=== PATIENT | male | born 1935 | race Caucasian/White ===

== ENCOUNTER 2017-11-12 19:46 | Inpatient (IN) | payer MEDICARE, OTHER ==
[~2017-11-12] VITALS: Ht 175.3 cm; Wt 63.2 kg
[2017-11-12] MEDS ORDERED: GELATIN SPONGE 12-7MM ONE ×3 (20:13→20:28)
[2017-11-12] MEDS ORDERED: VENL150C56 PO (20:43)
[2017-11-12] MEDS ORDERED: QUET1TAB32 PO ×2 (20:43)
[2017-11-12] MEDS ORDERED: POLY335019 PO (20:43)
[2017-11-12] MEDS ORDERED: SENN-61 PO (20:43)
[2017-11-12] MEDS ORDERED: LIDOCAINE/EPINEPH/TETRACAINE 1 EA SYR ONE (20:43)
[2017-11-12] MEDS ORDERED: SELE1SHA3 TOP (20:43)
[2017-11-12] MEDS ORDERED: XYLOCAINE 1%/SOD BICARB 20 ML VIAL INFIL ONE (21:00)
--- NOTE | 2017-11-12 21:17 | DIAGNOSTIC IMAGING REPORT ---
HEAD WITHOUT CONTRAST (CT) CLINICAL HISTORY: 82 years-old Male presenting with eval for bleed, fall. TECHNIQUE: Multidetector CT imaging of the head was performed without the use of intravenous contrast. IV contrast: None. A dose lowering technique was used consistent with the principles of ALARA (as low as reasonably achievable). COMPARISON: None. CT DOSE (mGy.cm): The estimated cumulative dose is 957.48 mGy.cm. FINDINGS: Preschool Teacher Aide topogram: Unremarkable. Proportional ventricular and sulcal prominence, likely age-related parenchymal volume loss. Periventricular and subcortical white matter hypoattenuation, nonspecific but likely indicative of chronic small vessel ischemic change. No mass effect or midline shift. No hemorrhage or acute territorial infarct. No extra-axial fluid collection. Paranasal sinuses and mastoid air cells clear. Calvarium intact. IMPRESSION: 1. Chronic small vessel ischemic change. No acute intracranial abnormality. Electronically signed by: Tu Esparza M.D. 11/12/2017 9:16 PM Dictated Date/Time: 11/12/2017 9:14 PM
--- NOTE | 2017-11-12 21:19 | DIAGNOSTIC IMAGING REPORT ---
CERVICAL SPINE W/O CLINICAL HISTORY: 82 years-old Male presenting with eval for fx, fall. TECHNIQUE: Multidetector CT of the cervical spine was performed without the use of intravenous contrast. IV contrast: None. A dose lowering technique was used consistent with the principles of ALARA (as low as reasonably achievable). COMPARISON: None. CT DOSE (mGy.cm): The estimated cumulative dose is 957.48. FINDINGS: Principal Clerk topogram: Unremarkable. Normal cervical lordosis. Vertebral bodies maintain normal height and alignment. The vertebral disc height loss noted in the lower cervical spine. Disc osteophyte complexes at nearly every level. No acute fracture or subluxation. Atherosclerosis. Apices clear. IMPRESSION: 1. No acute osseous injury of the cervical spine. 2. Multilevel degenerative change. Electronically signed by: Tu Esparza M.D. 11/12/2017 9:18 PM Dictated Date/Time: 11/12/2017 9:16 PM
--- NOTE | 2017-11-12 22:45 | EMERGENCY ROOM VISIT NOTE ---
ED Visit Note I was asked by Dr. Pulliam to repair a laceration on the patient's ear. I reviewed all documentation and evaluated the laceration independently. Please see Dr. Pulliam's dictation regarding further management and care. PE: SKIN: 3cm laceration noted to the posterior auricular sulcus, extending around the inferior/anterior aspect of the lobule, following the sulcus. There is a small, 0.5cm extension of the laceration extending in a transverse plane from the initial laceration at approximately the mid-point of the initial laceration. This is minimally bleeding. There are no obvious deep structures noted. The wound is clean and no foreign bodies noted. Verbal consent was obtained to perform the procedure. Using sterile technique the wound was cleaned with Betadine. The area was sterilely draped. 3 ml of 1 % buffered lidocaine was used to anesthetize the laceration on the area of the scalp which meets the ear and the earlobe. Once the patient was anesthetized, the wound was copiously irrigated under pressure with sterile saline. The wound was explored and there were no deep structures injured such as tendons, bone, or significant blood vessels. The laceration was repaired using 14 simple interrupted 6-0 nylon sutures with the wound edges being well approximated. The patient tolerated the procedure well. Hemostasis was achieved. The area was cleaned with sterile saline and dressed with bacitracin ointment and bandage.
--- NOTE | 2017-11-12 23:00 | EMERGENCY ROOM VISIT NOTE ---
History First contact with patient: 19:57 Chief Complaint: FALL Stated Complaint: FALL, LACERATION TO HEAD & BEHIND EAR History of Present Illness The patient is a 82 year old male who presents to the Emergency Room with complaints of unwitnessed fall - from [facility] - found by his caretakers at around 6:30 this evening, found lying on the floor on his left side next to his night stand with drops of blood around his head. Per caretakers, he was awake and alert, they assisted him to a chair and began to apply pressure to the back of his left ear to try and stop the bleeding, however this was difficult due to his combativeness. Here in ED pt's son and POA is present. Review of Systems ROS limited due to pt's demented status Past Medical/Surgical History Medical Problems: (1) Dementia Social History Smoking Status: Never Smoker Housing Status: detention Current/Historical Medications Scheduled Polyethylene Glycol 3350 (Miralax), 17 GM PO DAILY Quetiapine Fumarate (Seroquel), 75 MG PO HS Quetiapine Fumarate (Seroquel), 50 MG PO DAILY Selenium Sulfide (Selsun Blue), 1 APPLN TOP 2XWK Senna (Senokot), 2 TAB PO BID Venlafaxine Hcl (Effexor Extended Rel), 150 MG PO DAILY Physical Exam Vital Signs Date Time Temp Pulse Resp B/P (MAP) Pulse Ox O2 Delivery O2 Flow Rate FiO2 11/12/17 21:00 65 20 129/69 94 Room Air 11/12/17 20:55 65 11/12/17 19:54 36.7 73 20 110/72 95 Room Air Physical Exam GENERAL: Awake, demented, somewhat combative when applying pressure to lac. HENT: Normocephalic, atraumatic. Oropharynx unremarkable. Poor dentition. EYES: Normal conjunctiva. Sclera non-icteric. NECK: Supple. Hematoma over left sternocleidomastoid muscle area, 7 cm linear laceration at posterior left ear. ABDOMEN: Soft, non-distended. No tenderness to palpation. No rebound or guarding. No masses. RECTAL: Deferred. MUSCULOSKELETAL: Chest examination reveals no tenderness. No joint edema. LOWER EXTREMITIES: Calves are equal size bilaterally and non-tender. No edema. No discoloration. Medical Decision & Procedures Laboratory Results Test 11/12/17 20:49 Medications Administered Medications (Trade) Dose Ordered Sig/Ata Route Start Time Stop Time Status Last Admin Dose Admin Tetracaine/ Epinephrine/ Lidocaine (L.e.t. Gel 4%/ 1:100/0.5%) 1 ea STK-MED ONCE .ROUTE 11/12/17 20:43 11/12/17 20:44 DC 11/12/17 20:43 1 EA Procedure HEAD WITHOUT CONTRAST (CT) CLINICAL HISTORY: 82 years-old Male presenting with eval for bleed, fall. TECHNIQUE: Multidetector CT imaging of the head was performed without the use of intravenous contrast. IV contrast: None. A dose lowering technique was used consistent with the principles of ALARA (as low as reasonably achievable). COMPARISON: None. CT DOSE (mGy.cm): The estimated cumulative dose is 957.48 mGy.cm. FINDINGS: Demo Event Specialist topogram: Unremarkable. Proportional ventricular and sulcal prominence, likely age-related parenchymal volume loss. Periventricular and subcortical white matter hypoattenuation, nonspecific but likely indicative of chronic small vessel ischemic change. No mass effect or midline shift. No hemorrhage or acute territorial infarct. No extra-axial fluid collection. Paranasal sinuses and mastoid air cells clear. Calvarium intact. IMPRESSION: 1. Chronic small vessel ischemic change. No acute intracranial abnormality. Electronically signed by: Tu Esparza M.D. 11/12/2017 9:[address]: CERVICAL SPINE W/O CLINICAL HISTORY: 82 years-old Male presenting with eval for fx, fall. TECHNIQUE: Multidetector CT of the cervical spine was performed without the use of intravenous contrast. IV contrast: None. A dose lowering technique was used consistent with the principles of ALARA (as low as reasonably achievable). COMPARISON: None. CT DOSE (mGy.cm): The estimated cumulative dose is 957.48. FINDINGS: Demo Event Specialist topogram: Unremarkable. Normal cervical lordosis. Vertebral bodies maintain normal height and alignment. The vertebral disc height loss noted in the lower cervical spine. Disc osteophyte complexes at nearly every level. No acute fracture or subluxation. Atherosclerosis. Apices clear. IMPRESSION: 1. No acute osseous injury of the cervical spine. 2. Multilevel degenerative change. Electronically signed by: Tu Esparza M.D. 11/12/2017 9:18 PM Medical Decision The patient is a 82 year old male who presents to the Emergency Room with complaints of unwitnessed fall - from [facility] - found by his caretakers at around 6:30 this evening, found lying on the floor on his left side next to his night stand with drops of blood around his head. Per caretakers, he was awake and alert, they assisted him to a chair and began to apply pressure to the back of his left ear to try and stop the bleeding, however this was difficult due to his combativeness. Here in ED pt's son and POA is present. Ddx: syncope, epidural hematoma, subdural hematoma, mechanical fall Pt full phys exam revealed no concerns for additional injuries. Laceration repaired with local anesthesia see PA's note. POA decided to forego blood work given comfort status. Case mgmt discussed with family about going back to previous facility or being admitted. Family decides to keep him here, with plan to find SNF placement tomorrow. Pt ready for discharge. Head Trauma GCS Score: 15 Blood Pressure Screening Patient's blood pressure: Normal blood pressure Impression Primary Impression: Fall Departure Information Referrals Padmaja Dong C.R.N.P. (PCP) Patient Instructions My [facility] Resident Tracking Resident Involvement: Resident Care Provided Care Provided: Adult ED
[2017-11-13] MEDS ORDERED: POLYETHYLENE (MIRALAX) 17 GM PACK PO PRN
[2017-11-13] MEDS ORDERED: MAGNESIUM HYDROXIDE SUSP 30 ML UDC PO PRN
[2017-11-13] MEDS ORDERED: ACETAMINOPHEN 325 MG TAB PO PRN
[2017-11-13] MEDS ORDERED: ALUMINUM/MAGNESIUM/SIMETH (MAALOX MAX) 30 ML UDC PO PRN
--- NOTE | 2017-11-13 00:15 | EMERGENCY ROOM VISIT NOTE ---
History Report prepared by Ariella: Greta Cronin Under the Supervision of: Dr. Jose Pulliam M.D. First contact with patient: 19:57 Chief Complaint: FALL Stated Complaint: FALL, LACERATION TO HEAD & BEHIND EAR History of Present Illness The patient is a 82 year old male who presents to the Emergency Room with complaints of an episode of a fall occurring around 7 pm. The patient's son is POA and is in room. Per son, [facility] called him around 7 pm to inform him of the patient's fall. Per son, the patient had an unwitnessed fall and was found in his room on the ground. Per son, the patient got a laceration behind his left ear from the fall. The staff at [facility] was unable to get control of the bleeding. Per son, the patient appears at his baseline. The patient takes Aspirin daily. The patient is comfort care only however, the patient's son would like to do some testing and lab work on the patient. The patient has a history of dementia. His son believes his immunizations are up-to -date. Conversation with [facility] staff: the patient was found on the ground next to his night stand. Source of History: family History Limited By: dementia Onset: around 7 pm Position: other (generalized) Quality: other (fall) Timing: other (episode) Modifying Factors (Relieving): other (none) Associated Symptoms: No fevers Review of Systems ROS limited due to dementia. Past Medical & Surgical Medical Problems: (1) Dementia Family History Patient reports no known family medical history. Social History Smoking Status: Never Smoker Housing Status: fpc Occupation Status: retired Current/Historical Medications Scheduled Polyethylene Glycol 3350 (Miralax), 17 GM PO DAILY Quetiapine Fumarate (Seroquel), 75 MG PO HS Quetiapine Fumarate (Seroquel), 50 MG PO DAILY Selenium Sulfide (Selsun Blue), 1 APPLN TOP 2XWK Senna (Senokot), 2 TAB PO BID Venlafaxine Hcl (Effexor Extended Rel), 150 MG PO DAILY Allergies Coded Allergies: Risperidone (Verified Allergy, Unknown, UNKNOWN, 11/12/17) Physical Exam Vital Signs Date Time Temp Pulse Resp B/P (MAP) Pulse Ox O2 Delivery O2 Flow Rate FiO2 11/12/17 23:00 66 18 129/74 96 Room Air 11/12/17 21:00 65 20 129/69 94 Room Air 11/12/17 20:55 65 11/12/17 19:54 36.7 73 20 110/72 95 Room Air Physical Exam Constitutional: Vital signs reviewed. Exam limited secondary to dementia. Eyes: Pupils are equal round reactive to light. Conjunctiva are noninjected. ENT: Pharynx is clear without erythema or exudate. Mucous membranes are moist. Neck supple without meningeal signs. 3 cm laceration to the posterior auricular sulcus, 0.5 cm extended laceration into the transverse plane with ecchymosis and tenderness to the anterior neck. Respiratory: Clear to auscultation bilaterally. Breath sounds are equal bilaterally. Cardiovascular: Regular rate and rhythm. No rubs or gallops. GI: Soft, nondistended and nontender. Bowel sounds are present. Musculoskeletal: No midline tenderness to cervical spine. Minor bruise to left upper extremity, no tenderness to hips, full ROM of hip bilaterally. Integumentary: No cyanosis. Neurological: The patient is awake and alert. No focal deficits. Psychiatric: Unable to assess affect. Medical Decision & Procedures ER Provider Diagnostic Interpretation: Radiology results as stated below per my review and the radiologist's interpretation: CERVICAL SPINE W/O FINDINGS: Retail Sales Associate Bilingual topogram: Unremarkable. Normal cervical lordosis. Vertebral bodies maintain normal height and alignment. The vertebral disc height loss noted in the lower cervical spine. Disc osteophyte complexes at nearly every level. No acute fracture or subluxation. Atherosclerosis. Apices clear. IMPRESSION: 1. No acute osseous injury of the cervical spine. 2. Multilevel degenerative change. Electronically signed by: Tu Esparza M.D. HEAD WITHOUT CONTRAST (CT) FINDINGS: Retail Sales Associate Bilingual topogram: Unremarkable. Proportional ventricular and sulcal prominence, likely age-related parenchymal volume loss. Periventricular and subcortical white matter hypoattenuation, nonspecific but likely indicative of chronic small vessel ischemic change. No mass effect or midline shift. No hemorrhage or acute territorial infarct. No extra-axial fluid collection. Paranasal sinuses and mastoid air cells clear. Calvarium intact. IMPRESSION: 1. Chronic small vessel ischemic change. No acute intracranial abnormality. Electronically signed by: Tu Esparza M.D. Laboratory Results Test 11/12/17 20:49 Laboratory results as reviewed by me. Medications Administered Medications (Trade) Dose Ordered Sig/Ata Route Start Time Stop Time Status Last Admin Dose Admin Gelatin (Surgifoam Sponge 12-7MM (SMALL)) 1 ea STK-MED ONCE .ROUTE 11/12/17 20:13 11/12/17 20:14 DC 11/12/17 20:13 1 EA Gelatin (Surgifoam Sponge 12-7MM (SMALL)) 1 ea STK-MED ONCE .ROUTE 11/12/17 20:28 11/12/17 20:29 DC 11/12/17 20:28 1 EA Tetracaine/ Epinephrine/ Lidocaine (L.e.t. Gel 4%/ 1:100/0.5%) 1 ea STK-MED ONCE .ROUTE 11/12/17 20:43 11/12/17 20:44 DC 11/12/17 20:43 1 EA ECG Indication: other (fall) Rate (beats per minute): 67 Rhythm: sinus rhythm Findings: no ectopy, other (significant baseline artifact limiting interpretation, no ST elevation ) Change: EKG interpreted by me. ED Course 2013: Ordered Gelatin 1 ea .ROUTE. 2019: Ordered Gelatin 1 ea .ROUTE. 2027 Ordered Gelatin 1 ea .ROUTE. 2037: The patient was evaluated in room B7. A complete history and physical exam was performed. 2042: Ordered Tetracaine/Epinephrine/Lidocaine 1 ea .ROUTE. 2099: Ordered Lidocaine HCl 20 ml INFIL. 2132: I updated the patient's son on his test results. He declined blood work and now is declining carotid Doppler and angio. He would like to talk about possible admission overnight. 2149: See Judy Hough PA-C'adan lopes for laceration repair. 2252: I spoke with Dr. Harper of [facility] hospitalist service. We discussed the patient and his results. The patient will be further evaluated by him. 0: I spoke to Dr. Garzon-[facility] about the patients case. Medical Decision This is an 82-year-old male who was found on the ground at his residence. Differential diagnosis includes acute head injury, intracranial hemorrhage, concussion, syncope, dysrhythmia, carotid dissection, metabolic derangement, cardiac. I did perform a limited focused review of portions of the patient's old chart on the electronic medical record. The patient has had no recent pertinent visits to this hospital. I did evaluate the patient as noted above. I did obtain history from the patient's son who is his power of energy attorney. Initially the family member did wish to have a workup here. I did order and personally review the patient's 12- lead EKG as described above. I did order a CT of the head and cervical spine. I did review the images myself as well as the radiology report as described above. I did order the patient's blood work but the patient's son later decided he did not wish to have any blood work done. He also did not want any workup for possible carotid dissection despite the trauma to the area. He does understand the risks and consequences. The patient is only comfort care and so he did not want any more tests none. His laceration was repaired by Judy Hough PA-C. Please see her note for further details. His son did not feel the patient could be discharged back to [facility] because of his frequent falls and requested that he be kept here. I did have the case maker talk to the patient's son. I did discuss case with the hospitalist service. Resident Physician Supervision Note: I did evaluate and examine this patient myself. I did guide management for the patient. I agree with the resident's (Dr. Bailey) assessment as discussed. Please see the resident's dictation for further details. Head Trauma GCS Score: 15 Medication Reconcilliation Current Medication List: was personally reviewed by me Blood Pressure Screening Patient's blood pressure: Normal blood pressure Consults Time Called: 2249 Consulting Physician: Dr. James Returned Call: [phone] Harper of [facility] hospitalist service. We discussed the patient and his results. The patient will be further evaluated by him. Additional Consults: Time Called: [phone] Consulted Physician: Dr. Tristan Returned Call: [phone] Additional Comments: I spoke to Dr. Tristan about the patients case. Impression Primary Impression: Acute head injury Additional Impressions: Fall Ambulatory dysfunction Laceration of ear Scribe Attestation The scribe's documentation has been prepared under my direct and personally reviewed by me in its entirety. I confirm that the note above accurately reflects all work, treatment, procedures, and medical decision making performed by me. Departure Information Dispostion Being Evaluated By Hospitalist Referrals Padmaja Dong C.R.N.P. (PCP) Patient Instructions My [facility] Problem Qualifiers Primary Impression: Acute head injury Encounter type: initial encounter Qualified Codes: S09.90XA - Unspecified injury of head, initial encounter Additional Impressions: Fall Encounter type: initial encounter Qualified Codes: W19.XXXA - Unspecified fall, initial encounter Laceration of ear Encounter type: initial encounter Laterality: left Qualified Codes: S01.312A - Laceration without foreign body of left ear, initial encounter
--- NOTE | 2017-11-13 00:20 | History and Physical ---
History & Physical Date & Time of Service: Nov 12, 2017 at 23:52 Chief Complaint: Fall, Laceration To Head & Behind Ear Primary Care Physician: Padmaja Dong C.R.N.P. History of Present Illness Source: patient Patient is an 82 year old male with a history of dementia that presents s/p fall this morning with altered mental status. The patient was found on the floor this morning at [facility] after an unwitnessed fall with blood over his head. The patient was very combative and altered when he was found on the ground. The patient was brought to the emergency department and was found to have a 7cm laceration posterior to his left ear in addition to a large hematoma over his carotid neck region. CT head and neck were performed and no acute fractures or abnormalities were found. The patients son is the POA and stated the patient is DNR and would not like any further workup at this time despite already having received imaging. The son would like the father to be placed for senior living although no placement was able to arranged this evening. Past Medical/Surgical History Medical Problems: (1) Dementia Status: Chronic Family History Patient reports no known family medical history. Social History Smoking Status: Never Smoker Allergies Coded Allergies: Risperidone (Verified Allergy, Unknown, UNKNOWN, 11/12/17) Home Medications Scheduled Polyethylene Glycol 3350 (Miralax), 17 GM PO DAILY Quetiapine Fumarate (Seroquel), 75 MG PO HS Quetiapine Fumarate (Seroquel), 50 MG PO DAILY Selenium Sulfide (Selsun Blue), 1 APPLN TOP 2XWK Senna (Senokot), 2 TAB PO BID Venlafaxine Hcl (Effexor Extended Rel), 150 MG PO DAILY Review of Systems Unable to obtain review of systems from the patient due to altered state Physical Exam Vital Signs Date Time Temp Pulse Resp B/P (MAP) Pulse Ox O2 Delivery O2 Flow Rate FiO2 11/12/17 23:00 66 18 129/74 96 Room Air 11/12/17 21:00 65 20 129/69 94 Room Air 11/12/17 20:55 65 11/12/17 19:54 36.7 73 20 110/72 95 Room Air General Appearance: WD/WN, no apparent distress Head: + pertinent finding (Bandage around head C/D/I) Eyes: normal inspection, sclerae normal Neck: supple, trachea midline, + pertinent finding (Hematoma over left carotid region) Respiratory/Chest: chest non-tender, lungs clear, normal breath sounds Cardiovascular: regular rate, rhythm, no edema, no gallop Abdomen/GI: normal bowel sounds, non tender, soft Neurologic/Psych: + disoriented, + pertinent finding (Incomprehensible speech) Diagnostics Laboratory Results Results Past 24 Hours Test 11/12/17 20:49 Range/Units Impression Assessment and Plan Resident Physician Supervision Note: Patient is an 82 year old male with a history of dementia that presents with AMS s/p fall 1) Acute encephalopathy s/p fall - CT head shows no acute intracranial abnormalities - CT cervical spine shows no abnormalities - Son (POA) of patient stated no further workup to assess etiology of the confusion - Plan to arrange referral to senior living --> Referral sent to [facility] - Several sutures placed along laceration posterior to left ear --> Will require follow up for suture removal - Observation Med/Surg 2) Dementia/ Depression - Continue home Seroquel and Effexor 3) DVT - Contraindicated due to acute fall - SCDs 4) Code Status - DNR I was present with Dr. Garzon during the history and exam. I discussed the case with the resident and agree with the findings and plan as documented in the note. Any exceptions or clarifications are listed here: 82 y/o m with advanced dementia who presents from assisted living following a fall. He is brought to the hospital with the intent of transfer to a nursing facility. He is not acutely ill on admission. OE AAO x 1 S1,2 R CTA - poor effort NT, ND No motor deficits appreciated P: Assigned to observation PT/OT eval - effect placement as possible Cont Seroquel and Venlafaxine Documented By: Remberto Harper Level of Care Med/Surg Advanced Directives Existing Power of Automotive Dismantler: Yes Resuscitation Status DO NOT RESUSCITATE VTE Prophylaxis VTE Risk Assessment Done? Y/N: Yes Risk Level: Moderate Resident Tracking Resident Involvement: Resident Care Provided Care Provided: Adult Hospital Medicine
[2017-11-13] MEDS ORDERED: IV FLUIDS COMPLETED PRN (02:15)
[2017-11-13 03:23] VITALS: BP 153/70; PULSE 73; TEMP 36.5; O2SAT 100; Ht 175.3 cm; Wt 63.2 kg
[2017-11-13 07:12] VITALS: BP 155/73; PULSE 68; TEMP 36.6; O2SAT 98
[2017-11-13] MEDS ORDERED: PNEUMOCOCCAL POLYSACCHARIDES 25 MCG/0.5 ML VIAL/SYR IM. ONE (09:00)
[2017-11-13] MEDS ORDERED: PNEUMOCOCCAL ADMINISTRATION CHARGE ONE (09:00)
[2017-11-13] MEDS ORDERED: QUETIAPINE FUMARATE 25 MG TAB PO SCH (09:00)
[2017-11-13] MEDS: VENLAFAXINE HCL XR 150 MG CAPXR PO SCH (09:32)
[2017-11-13] MEDS: SENNA 8.6 MG TAB PO SCH ×2 (09:33→22:03)
--- NOTE | 2017-11-13 09:33 | Family Medicine Progress Note ---
Progress Note Date of Service Nov 13, 2017. Subjective not very verbal Confused Does not answer questions appropriately Additional Comments: Denies pain otherwise ROS difficult to obtain Objective Physical Exam General Appearance: no apparent distress, + pertinent finding (bandage over forehead) Eyes: PERRL, EOMI Respiratory/Chest: lungs clear, no respiratory distress, no accessory muscle use Cardiovascular: regular rate, rhythm, no edema, + pertinent finding (left neck hematoma) Abdomen: normal bowel sounds, non tender, soft Extremities: non-tender, no pedal edema Neurologic/Psychiatric: + disoriented Assessment and Plan Patient is an 82 year old male with a history of dementia that presents with AMS s/p fall 1) Acute encephalopathy s/p fall - CT head shows no acute intracranial abnormalities - CT cervical spine shows no abnormalities - Son (POA) of patient stated no further workup to assess etiology of the confusion - Referral to skilled nursing- pending - sutures placed along laceration posterior to left ear --> needs follow up for suture removal No blood work or further eval pain control and anxiety management (lorazepam 0.25 hs prn available) 2) Dementia/ Depression Documented By: Pawel Means - Continue home Seroquel and Effexor 3) DVT proph - Contraindicated due to acute fall - SCDs 4) Code Status - DNR 5) Dispo pending SNF referral Resident Physician Supervision Note: I was present with Dr. Orellana during the history and exam. I discussed the case with the resident and agree with the findings and plan as documented in the note.
[2017-11-13 15:18] VITALS: BP 134/74; PULSE 62; TEMP 36.5; O2SAT 97
[2017-11-13] MEDS: QUETIAPINE FUMARATE 25 MG TAB PO SCH ×2 (16:00→22:02)
[2017-11-13] MEDS ORDERED: LORAZEPAM INJ 0.25 MG in SYRINGE 0.25 ML IV PRN (19:30)
[2017-11-13] MEDS ORDERED: LORAZEPAM INJ 0.5 MG in SYRINGE 0.75 ML IV PRN (19:45)
[2017-11-13 23:50] VITALS: BP 137/63; PULSE 73; TEMP 36.4; O2SAT 94
[2017-11-14 00:15] VITALS: O2SAT 94
[2017-11-14 07:10] VITALS: BP 131/71; PULSE 76; TEMP 36.4; O2SAT 97
[2017-11-14] MEDS: VENLAFAXINE HCL XR 150 MG CAPXR PO SCH (08:13)
[2017-11-14] MEDS: SENNA 8.6 MG TAB PO SCH ×2 (08:14→20:06)
--- NOTE | 2017-11-14 09:23 | Family Medicine Progress Note ---
Progress Note Date of Service Nov 14, 2017. Subjective Not very verbal Denies pain Additional Comments: unobtainable due to patient not very communicative Medications Medications Administered Medications (Trade) Dose Ordered Sig/Ata Route Start Time Stop Time Status Last Admin Dose Admin Gelatin (Surgifoam Sponge 12-7MM (SMALL)) 1 ea STK-MED ONCE .ROUTE 11/12/17 20:13 11/12/17 20:14 DC 11/12/17 20:13 1 EA Gelatin (Surgifoam Sponge 12-7MM (SMALL)) 1 ea STK-MED ONCE .ROUTE 11/12/17 20:28 11/12/17 20:29 DC 11/12/17 20:28 1 EA Tetracaine/ Epinephrine/ Lidocaine (L.e.t. Gel 4%/ 1:100/0.5%) 1 ea STK-MED ONCE .ROUTE 11/12/17 20:43 11/12/17 20:44 DC 11/12/17 20:43 1 EA Quetiapine Fumarate (seroQUEL TAB) 75 mg HS PO 11/13/17 21:00 12/13/17 20:59 11/13/17 22:02 75 MG Senna (Senokot Tab) 17.2 mg BID PO 11/13/17 09:00 12/13/17 08:59 11/14/17 08:14 17.2 MG Venlafaxine HCl (effeXOR EXTENDED REL CAP) 150 mg DAILY PO 11/13/17 09:00 12/13/17 08:59 11/14/17 08:13 150 MG Quetiapine Fumarate (seroQUEL TAB) 50 mg DAILY@1500 PO 11/13/17 15:00 12/13/17 14:59 11/13/17 16:00 50 MG Objective Vital Signs Vital Signs Past 12 Hours Date Time Temp Pulse Resp B/P (MAP) Pulse Ox O2 Delivery O2 Flow Rate FiO2 11/14/17 07:10 36.4 76 20 131/71 (91) 97 Room Air 11/14/17 00:15 94 Room Air 11/13/17 23:50 36.4 73 18 137/63 (87) 94 Room Air Physical Exam General Appearance: no apparent distress Eyes: PERRL Neck: supple, + pertinent finding (Hematoma over left neck- slightly improved from yesterday) Respiratory/Chest: normal breath sounds, no respiratory distress, no accessory muscle use Cardiovascular: regular rate, rhythm, no murmur Abdomen: normal bowel sounds, non tender, soft Extremities: normal inspection, no pedal edema Neurologic/Psychiatric: + disoriented Assessment and Plan Patient is an 82 year old male with a history of dementia that presents with AMS s/p fall 1) Acute encephalopathy s/p fall - CT head shows no acute intracranial abnormalities - CT cervical spine shows no abnormalities - No further workup/blood work per family- would like to keep him comfortable - Referral to group home- pending - sutures placed along laceration posterior to left ear --> needs follow up for suture removal pain control and anxiety management (lorazepam 0.25 hs prn available) 2) Dementia/ Depression - Continue home Seroquel and Effexor 3) DVT proph - Contraindicated due to acute fall - SCDs 4) Code Status - DNR 5) Dispo pending SNF referral Resident Physician Supervision Note: I interviewed and examined the patient. Discussed with Dr. Orellana and agree with findings and plan as documented in the note. Patient's family members bedside; patient was apparently somewhat agitated before but is now calm. He is awake but disoriented to time date and place. PLAN 1) awaiting placement. Documented By: Pawel Means
[2017-11-14 14:57] VITALS: BP 129/67; PULSE 70; TEMP 36.7; O2SAT 96
[2017-11-14] MEDS: QUETIAPINE FUMARATE 25 MG TAB PO SCH ×2 (15:42→20:06)
[2017-11-14 22:52] VITALS: BP 113/65; PULSE 67; TEMP 36.6; O2SAT 97
[2017-11-15 07:16] VITALS: BP 109/66; PULSE 63; TEMP 36.8; O2SAT 90
[2017-11-15] MEDS: SENNA 8.6 MG TAB PO SCH ×2 (08:54→21:09)
[2017-11-15] MEDS: VENLAFAXINE HCL XR 150 MG CAPXR PO SCH (08:54)
--- NOTE | 2017-11-15 09:27 | Family Medicine Progress Note ---
Progress Note Date of Service Nov 15, 2017. Subjective Pt evaluation today including: conversation w/ patient, physical exam, chart review, lab review, conversation w/ real estate consultant, review of inpatient medication list Pain: none PO Intake: good Voiding: no voiding problems Patient is difficult to understand and does not answer questions appropriately Denies any pain Additional Comments: unable to obtain due to dementia Medications Current Inpatient Medications Medications (Trade) Dose Ordered Sig/Ata Route Start Time Stop Time Status Last Admin Dose Admin Acetaminophen (Tylenol Tab) 650 mg Q4H PRN PO 11/13/17 00:00 12/13/17 00:00 Al Hydrox/Mg Hydrox/Simethicone (Maalox Max Susp) 15 ml Q4H PRN PO 11/13/17 00:00 12/13/17 00:00 Magnesium Hydroxide (Milk Of Magnesia Susp) 30 ml Q6H PRN PO 11/13/17 00:00 12/13/17 00:00 Polyethylene (Miralax Powder Packet) 17 gm DAILY PRN PO 11/13/17 00:00 12/13/17 00:00 Quetiapine Fumarate (seroQUEL TAB) 75 mg HS PO 11/13/17 21:00 12/13/17 20:59 11/14/17 20:06 75 MG Senna (Senokot Tab) 17.2 mg BID PO 11/13/17 09:00 12/13/17 08:59 11/15/17 08:54 17.2 MG Venlafaxine HCl (effeXOR EXTENDED REL CAP) 150 mg DAILY PO 11/13/17 09:00 12/13/17 08:59 11/15/17 08:54 150 MG Miscellaneous (Iv Fluids Completed) 1 ea PRN PRN N/A 11/13/17 02:15 11/13/18 02:14 Quetiapine Fumarate (seroQUEL TAB) 50 mg DAILY@1500 PO 11/13/17 15:00 12/13/17 14:59 11/14/17 15:42 50 MG Lorazepam 0.5 mg/ Syringe 1 ml @ 1 mls/min HS PRN IV 11/13/17 19:45 12/13/17 19:44 Objective Vital Signs General Appearance: no apparent distress Eyes: PERRL Neck: supple, + pertinent finding (bruise over L neck) Respiratory/Chest: normal breath sounds, no respiratory distress, no accessory muscle use Cardiovascular: regular rate, rhythm, no murmur Abdomen: normal bowel sounds, non tender, soft Extremities: normal inspection, no pedal edema Neurologic/Psychiatric: + disorientated to person place and time Assessment and Plan Patient is an 82 year old male with a history of dementia that presents with AMS s/p fall Acute encephalopathy s/p fall - CT head shows no acute intracranial abnormalities - CT cervical spine shows no abnormalities - No further workup/blood work per family- would like to keep him comfortable - sutures placed along laceration posterior to left ear --> needs follow up for suture removal - pain control and anxiety management (lorazepam 0.25 hs prn available) Dementia/ Depression - Continue home Seroquel and Effexor DVT proph - Contraindicated due to acute fall - SCDs Code Status - DNR Dispo - pending placement to [facility] Continued [facility] stay due to: home environment unsafe for pt Discharge planning: [facility] Reviewed: Pt Seen/Exam by Me History no concerns. comfortable in bed not able to hold any conversation Constitutional: denies: fever General Appearance: no apparent distress Respiratory: lungs clear, no respiratory distress Cardiovascular: regular rate, rhythm Neurologic/Psychiatric: alert Skin Characteristics: warm/dry Assessment/Plan Resident Physician Supervision Note: I independently interviewed and examined the patient and verified the rosenberg history and physical, reviewed labs and image studies, discussed the case with the resident Dr. Ma and agree with the findings and care plan.
[2017-11-15] MEDS: QUETIAPINE FUMARATE 25 MG TAB PO SCH ×2 (14:20→21:09)
[2017-11-15 15:16] VITALS: BP 115/73; PULSE 64; TEMP 36.3; O2SAT 94
[2017-11-15 23:01] VITALS: BP 132/74; PULSE 74; TEMP 36.4; O2SAT 99
[2017-11-16] MEDS: VENLAFAXINE HCL XR 150 MG CAPXR PO SCH (07:57)
[2017-11-16] MEDS: SENNA 8.6 MG TAB PO SCH (07:58)
[2017-11-16 08:02] VITALS: BP 165/94; PULSE 78; TEMP 36.4; O2SAT 96
--- NOTE | 2017-11-16 11:00 | Discharge Instructions ---
Discharge Instructions Date of Service Nov 16, 2017. Admission Reason for Admission: FALL Discharge Discharge Diagnosis / Problem: Fall/Altered mental status Discharge Goals Goal(s): Decrease discomfort, Diagnostic testing Activity Recommendations Activity Level: Assistance Required Therapies: Physical Therapy . Additional Information Patient informed of condition: Yes Advance Directives: Yes DNR: Yes Level of Care: Skilled Communicable Disease: No Prognosis: Stable Instructions / Follow-Up Instructions / Follow-Up Patient with a PMH of dementia was admitted to the hospital due to a fall at [facility]. Was combative with staff. He was brought to the hospital and had a CT scan of his head which did not show any acute bleed. He was found to have a laceration at the back of his ear and a bruise on his left neck. His son said that the patient would not want any lab work or further workup. Case management organized for the patient to go to [place] at [facility]. Current Hospital Diet Patient's current hospital diet: Regular Diet Discharge Diet Recommended Diet: Regular Diet Pending Studies Studies pending at discharge: no Medical Emergencies . Who to Call and When: Medical Emergencies: If at any time you feel your situation is an emergency, please call 911 immediately. . Non-Emergent Contact Non-Emergency issues call your: Primary Care Provider . . "Provider Documentation" section prepared by Hua Ma. . Core Measure Problem Core Measures: None
[2017-11-16 11:03] VITALS: BP 165/94; PULSE 78; TEMP 36.4; O2SAT 96
--- NOTE | 2017-11-16 11:09 | Discharge Summary ---
Discharge Summary Date of Service Nov 16, 2017. Discharge Summary Admission Date: Nov 13, 2017 at 11:25 Discharge Date: Nov 16, 2017 Discharge Disposition: long term facility Principal Diagnosis: Fall and altered mental status Medication Reconciliation Continued Medications: Polyethylene Glycol 3350 (Miralax) 1 Pow Pow 17 GM PO DAILY, #255 GM Quetiapine Fumarate (Seroquel) 50 Mg Tab 75 MG PO HS, TAB Quetiapine Fumarate (Seroquel) 50 Mg Tab 50 MG PO DAILY, TAB GIVE @ 1500 Selenium Sulfide (Selsun Blue) 1 % Sha 1 APPLN TOP 2XWK for DRY SCALP Senna (Senokot) 8.6 Mg Tab 2 TAB PO BID, TAB Venlafaxine Hcl (Effexor Extended Rel) 150 Mg Cap 150 MG PO DAILY, CAP Discharge Exam Patient denies any pain. Speech is non-sensical. Unable to obtain ROS Physical Exam: General Appearance: WD/WN, no apparent distress Neck: supple, no JVD, trachea midline Respiratory/Chest: lungs clear, no respiratory distress, no accessory muscle use Cardiovascular: regular rate, rhythm, no murmur, normal peripheral pulses Abdomen / GI: normal bowel sounds, non tender, soft Extremities: normal inspection, no calf tenderness, non-tender Neurologic/Psychiatric: + disoriented Skin: warm/dry, no rash, + pertinent finding (bruise over left neck, well repaired lac behind left ear) Hospital Course Patient is an 82 year old male with a history of dementia that presents with AMS s/p fall. Found to have a laceration behind ear which was repaired with sutures in the ED. Acute encephalopathy s/p fall with underlying dementia/depression - Resolved - CT head shows no acute intracranial abnormalities - CT cervical spine shows no abnormalities - Declined lab testing during last few days of hospital stay. - sutures placed along laceration posterior to left ear in ED --> sutures need to be removed in 2-5 days - tylenol prn for laceration pain Dementia/ Depression - Continued home Seroquel and Effexor Total Time Spent: Greater than 30 minutes This includes examination of the patient, discharge planning, medication reconciliation, and communication with other providers. Discharge Instructions Please refer to the electronic Patient Visit Report (Discharge Instructions) for additional information. Additional Copies To Dione Magallanes; Tu Ellington M.D.; Padmaja Dong C.R.NMayra Reviewed: Pt Seen/Exam by Me History no fever. mental status at baseline - has been aggressive with nurses at times. Constitutional: denies: fever General Appearance: no apparent distress (comfortable in bed) Respiratory: lungs clear, no respiratory distress Cardiovascular: regular rate, rhythm Neurologic/Psychiatric: alert Skin Characteristics: warm/dry Assessment/Plan Resident Physician Supervision Note: I independently interviewed and examined the patient and verified the rosenberg history and physical, reviewed labs and image studies, discussed the case with the resident Dr. Ma and agree with the findings and care plan. Time spent in discharge 35 min
[2017-11-16] MEDS: QUETIAPINE FUMARATE 25 MG TAB PO SCH (13:05)
== END 2017-11-16 13:10 | DRG 154 ==
LOC: EDBD 19:46 → C.EDB 19:47 → C.MS2W 23:51 → ENRESERV 11-13 00:31 → OBSVTOIN 11-13 11:25
PROVIDERS: ADMIT Student in an Organized Health Care Education/Training Program; ATTEND Family Medicine
PROC: 0HQ3XZZ Repair Left Ear Skin, External Approach (ICD-10-PCS; principal; 2017-11-12)
DX: S01.312A Laceration without foreign body of left ear, initial encounter (principal); G93.40 Encephalopathy, unspecified; F03.90 Unspecified dementia, unspecified severity, without behavioral disturbance, psychotic disturbance, mood disturbance, and anxiety; F32.9 Major depressive disorder, single episode, unspecified; Z66 Do not resuscitate; Z79.899 Other long term (current) drug therapy; Z88.8 Allergy status to other drugs, medicaments and biological substances; W19.XXXA Unspecified fall, initial encounter; Y92.193 Bedroom in other specified residential institution as the place of occurrence of the external cause